=== PATIENT | female | born 2000 | race Caucasian/White ===

== ENCOUNTER 2018-05-21 13:50 | Emergency (ER) | payer OTHER ==
--- NOTE | 2018-05-21 14:08 | ED Physician Documentation ---
Female Urogenital Problems - HPI Stated Complaint: hematuria Chief Complaint: Female Urogenital Problems Additional Information: Patient presents to ED with a 24 hour history of urinary frequency, dysuria and hematuria (started this afternoon). She denies fever, chills, abdominal pain, nausea or vomiting. Severity: mild Location of Pain: denies: pelvic pain, vaginal pain - Vaginal Bleeding Sexual History: active - ROS CONST: denies: fever GI/: denies: nausea, vomiting CVS/RESP: denies: none EYES/ENT: denies: none NEURO/PSYCH: denies: headache MS/SKIN/LYMPH: denies: swollen glands - PAST HX Past History: none Other History: none Allergies/Adverse Reactions: Allergies Allergy/AdvReac Type Severity Reaction Status Date / Time No Known Allergies Allergy Verified 05/21/18 14:01 Home Medications: Ambulatory Orders Medication Instructions Recorded Ciprofloxacin HCl [Cipro] 500 mg PO BID #14 tablet 05/21/18 - SOCIAL HX Smoking History: non-smoker Alcohol Use: none Drug Use: none - FAMILY HX Family History: none - REVIEWED ASSESSMENTS Nursing Assessment Reviewed: Yes Vitals Reviewed: Yes ED Results Lab/Radiology - Orders Orders: ED Orders Category Date Time Status UA W/MICRO IF INDICATED Routine Lab 05/21/18 14:03 Ordered Female Urogenital Problems - EXAM General Appearance: no acute distress, alert EENT: MICHELL Respiratory: no resp. distress, breath sounds nml CVS: reg rate & rhythm, heart sounds normal Abdomen: soft, non-tender, no distention Back: non-tender. No: CVA tenderness Skin: color nml, no rash, warm,dry Extremities: non-tender, no evidence of injury Neuro: oriented X3, mood/affect nml Discharge Clincal Impression: Acute cystitis with hematuria Prescriptions: Ciprofloxacin HCl [Cipro] 500 mg PO BID #14 tablet Referrals: Primary Doctor,No [Primary Care Provider] - 2 Days Additional Instructions: 1. Take antibiotics until completely gone 2. Drink plenty of fluids, avoid caffeine/alcohol 3. Tylenol and/or ibuprofen as needed for pain/fever 4. Follow up with PCP within 1 week 5. Return to ER for new or worsening symptoms. Condition: Stable Disposition: HOME, SELF-CARE Decision to Admit: NO Date of Decison to Admit: 05/21/18 Decision Time: 14:10
[2018-05-21 14:15] VITALS: BP 134/64
[2018-05-21 15:35] LABS: OCCULT BLOOD,URINE 3+ (NEGATIVE); PH URINE 8.5 (5.0 - 8.0)
[2018-05-21 15:36] LABS: URINE HCG NEGATIVE (NEGATIVE)
[2018-05-22 07:07] LABS: COLOR,URINE RED (YELLOW)
== END 2018-05-21 14:20 | disposition home or self-care (01) ==
LOC: ED 13:50
DX: N30.01 Acute cystitis with hematuria (principal)
CPT/HCPCS: 81002; 81025; 87086; 99283